=== PATIENT | male | born 1960 | race Caucasian/White ===

== ENCOUNTER 2019-04-08 12:13 | Emergency (ER) | payer SELFPAY ==
[2019-04-08] MEDS ORDERED: dexAMETHasone 10 MG/ML VIAL ONE (12:29)
[2019-04-08] MEDS ORDERED: KETOROLAC 30 MG/ML INJ ONE (12:29)
--- NOTE | 2019-04-08 13:00 | ER ---
Nurse's Notes [facility] Name: Dillon Agudelo Age: 58 yrs Sex: Male : 1960 Arrival Date: 04/08/2019 Time: 12:15 Bed 13 Private MD: Diagnosis: Lumbago with sciatica, left side Presentation: 04/08 12:19 Presenting complaint: Patient states: low back pain after lifting a 20 lb bag of ice sv today. Transition of care: patient was not received from another setting of care. Onset of symptoms was April 08, 2019. Risk Assessment: Do you want to hurt yourself or someone else? Patient reports no desire to harm self or others. Initial Sepsis Screen: Does the patient meet any 2 criteria? No. Patient's initial sepsis screen is negative. Does the patient have a suspected source of infection? No. Patient's initial sepsis screen is negative. Care prior to arrival: None. 12:19 Method Of Arrival: Ambulatory sv 12:19 Acuity: CINDY 4 sv Historical: - Allergies: 12:19 No Known Allergies; sv - PMHx: 12:19 Thyroid problem; sv - PSHx: 12:19 None; sv - Immunization history:: Flu vaccine is not up to date. - Social history:: Smoking status: Patient uses tobacco products, smokes one pack cigarettes per day. - Ebola Screening: : No symptoms or risks identified at this time. Screenin:20 Abuse screen: Denies threats or abuse. Nutritional screening: No deficits noted. rb1 Tuberculosis screening: No symptoms or risk factors identified. Fall Risk None identified. Assessment: 12:20 General: Appears in no apparent distress. comfortable, Behavior is calm, cooperative, rb1 Denies fever. Pain: Complains of pain in lumbar area and left low back Pain radiates to left leg Pain currently is 8 out of 10 on a pain scale. Pain began 0800 this morning. Neuro: Level of Consciousness is awake, alert, obeys commands, Oriented to person, place, time, situation. Cardiovascular: Capillary refill < 3 seconds is brisk in bilateral fingers. Respiratory: Airway is patent Respiratory effort is even, unlabored, Respiratory pattern is regular, symmetrical. GI: No signs and/or symptoms were reported involving the gastrointestinal system. : No signs and/or symptoms were reported regarding the genitourinary system. Derm: Skin is pink, warm \T\ dry. Musculoskeletal: Range of motion: intact in all extremities. 13:10 Reassessment: Patient appears in no apparent distress at this time. Patient and/or rb1 family updated on plan of care and expected duration. Pain level reassessed. Patient is alert, oriented x 3, equal unlabored respirations, skin warm/dry/pink. Vital Signs: 12:20 BP 141 / 93; Pulse 84; Resp 20; Temp 98.7; Pulse Ox 94% ; Weight 77.11 kg; Height 5 ft. sv 7 in. (170.18 cm); Pain 8/10; 13:10 BP 139 / 90; Pulse 83; Resp 17; Pulse Ox 97% on R/A; Pain 6/10; rb1 12:20 Body Mass Index 26.63 (77.11 kg, 170.18 cm) sv ED Course: 12:15 Patient arrived in ED. as 12:16 Joe Cedeño NP is PHCP. pm1 12:16 Shine Ingram MD is Attending Physician. pm1 12:19 Triage completed. sv 12:20 Arm band placed on. sv 12:20 Patient has correct armband on for positive identification. Bed in low position. Call rb1 light in reach. Side rails up X 1. Pulse ox on. NIBP on. 12:23 Karyn Kowalski, RN is Primary Nurse. rb1 13:16 No provider procedures requiring assistance completed. Patient did not have IV access rb1 during this emergency room visit. Administered Medications: 12:33 Drug: TORadol 60 mg Route: IM; Site: left gluteus; rb1 12:50 Follow up: Response: No adverse reaction; Pain is decreased rb1 12:34 Drug: Decadron 10 mg Route: IM; Site: left deltoid; rb1 12:50 Follow up: Response: No adverse reaction rb1 Outcome: 12:59 Discharge ordered by MD. pm1 13:16 Discharged to home ambulatory. rb1 13:16 Condition: stable 13:16 Discharge instructions given to patient, Instructed on discharge instructions, follow up and referral plans. medication usage, Demonstrated understanding of instructions, follow-up care, medications, Prescriptions given X 3. 13:18 Patient left the ED. rb1 Signatures: Stacy Calderon RN RN Jolly Heller as Kowalski, Karyn, RN RN rb1 Marikatie, Joe, [employer]BEST[employer] SIDING [employer]CHANIC ASBESTOS SIDING MECHANIC pm1
--- NOTE | 2019-04-08 13:01 | EDPHYS ---
Physician Documentation [facility] Name: Dillon Agudelo Age: 58 yrs Sex: Male : 1960 Arrival Date: 04/08/2019 Time: 12:15 Bed 13 Private MD: Shine Palomino HPI: 04/08 12:24 This 58 yrs old Male presents to ER via Ambulatory with complaints of Low pm1 Back Pain. 12:24 The patient presents with pain. The symptoms are located in the low back. The pain pm1 radiates to the left leg. The problem was sustained lifting a bag of ice. Onset: The symptoms/episode began/occurred today. Modifying factors: The patient symptoms are alleviated by remaining still, the patient symptoms are aggravated by movement. Associated signs and symptoms: Pertinent negatives: abdominal pain, chest pain, constipation, dysuria, fever, hematuria, nausea, numbness, tingling, vomiting. The patient has experienced similar episodes in the past, multiple times. Patient with back issues for the past 15 years. Has arthritis, herniated/worn discs to lower back. Usually aggravates his back with some motion. Prior to back pain today from picking up a bag of ice, the last back pain was due to bending over and putting on his boots from a seated position. Historical: - Allergies: 12:19 No Known Allergies; sv - PMHx: 12:19 Thyroid problem; sv - PSHx: 12:19 None; sv - Immunization history:: Flu vaccine is not up to date. - Social history:: Smoking status: Patient uses tobacco products, smokes one pack cigarettes per day. - Ebola Screening: : No symptoms or risks identified at this time. ROS: 12:24 Constitutional: Negative for fever, chills, and weight loss, Neck: Negative for injury, pm1 pain, and swelling, Cardiovascular: Negative for chest pain, palpitations, and edema, Respiratory: Negative for shortness of breath, cough, wheezing, and pleuritic chest pain, Abdomen/GI: Negative for abdominal pain, nausea, vomiting, diarrhea, and constipation. 12:24 : Negative for injury, bleeding, discharge, and swelling, MS/Extremity: Negative for injury and deformity, Skin: Negative for injury, rash, and discoloration, Neuro: Negative for headache, weakness, numbness, tingling, and seizure. 12:24 Back: Positive for pain with movement, of the lumbar area, radiating to left lower leg. Exam: 12:24 Constitutional: This is a well developed, well nourished patient who is awake, alert, pm1 and in no acute distress. Head/Face: Normocephalic, atraumatic. Neck: Trachea midline, no thyromegaly or masses palpated, and no cervical lymphadenopathy. Supple, full range of motion without nuchal rigidity, or vertebral point tenderness. No Meningismus. Chest/axilla: Normal chest wall appearance and motion. Nontender with no deformity. No lesions are appreciated. Cardiovascular: Regular rate and rhythm with a normal S1 and S2. No gallops, murmurs, or rubs. Normal PMI, no JVD. No pulse deficits. Respiratory: Lungs have equal breath sounds bilaterally, clear to auscultation and percussion. No rales, rhonchi or wheezes noted. No increased work of breathing, no retractions or nasal flaring. Abdomen/GI: Soft, non-tender, with normal bowel sounds. No distension or tympany. No guarding or rebound. No evidence of tenderness throughout. 12:24 Skin: Warm, dry with normal turgor. Normal color with no rashes, no lesions, and no evidence of cellulitis. MS/ Extremity: Pulses equal, no cyanosis. Neurovascular intact. Full, normal range of motion. 12:24 Back: normal spinal alignment noted, vertebral tenderness, is not appreciated, muscle spasm, is appreciated in the low back area. 12:24 Neuro: Orientation: is normal, Motor: is normal, moves all fours, Sensation: is normal, no obvious gross deficits. Vital Signs: 12:20 BP 141 / 93; Pulse 84; Resp 20; Temp 98.7; Pulse Ox 94% ; Weight 77.11 kg; Height 5 ft. sv 7 in. (170.18 cm); Pain 8/10; 13:10 BP 139 / 90; Pulse 83; Resp 17; Pulse Ox 97% on R/A; Pain 6/10; rb1 12:20 Body Mass Index 26.63 (77.11 kg, 170.18 cm) sv MDM: 12:16 Patient medically screened. [facility] 12:23 Data reviewed: vital signs. pm1 12:47 Counseling: I had a detailed discussion with the patient and/or guardian regarding: the pm1 historical points, exam findings, and any diagnostic results supporting the discharge/admit diagnosis, the need for outpatient follow up, with PCP, to return to the emergency department if symptoms worsen or persist or if there are any questions or concerns that arise at home. Administered Medications: 12:33 Drug: TORadol 60 mg Route: IM; Site: left gluteus; rb1 12:50 Follow up: Response: No adverse reaction; Pain is decreased rb1 12:34 Drug: Decadron 10 mg Route: IM; Site: left deltoid; rb1 12:50 Follow up: Response: No adverse reaction rb1 Disposition: 04/08/19 12:59 Discharged to Home. Impression: Lumbago with sciatica, left side. - Condition is Stable. - Discharge Instructions: Back Pain, Adult, Sciatica. - Prescriptions for Naprosyn 500 mg Oral Tablet - take 1 tablet by ORAL route 2 times per day As needed take with food; 30 tablet. Medrol (Taco) 4 mg Oral Tablets, Dose Pack - take 1 tablet by ORAL route as directed - follow package instructions; 1 packet. Tramadol 50 mg Oral Tablet - take 1 tablet by ORAL route every 8 hours as needed; 12 tablet. - Medication Reconciliation Form, Thank You Letter, Antibiotic Education, Prescription Opioid Use form. - Follow up: Emergency Department; When: As needed; Reason: Worsening of condition. Follow up: Private Physician; When: 2 - 3 days; Reason: Recheck today's complaints, Continuance of care, Re-evaluation by your physician. - Problem is new. - Symptoms have improved. Addendum: 04/10/2019 10:16 Co-signature as Attending Physician, Shine Ingram MD I agree with the assessment and c lucio plan of care. Signatures: Stacy Calderon RN RN sv Anderson, Corey, MD MD cha Barber, Rebecca, RN RN rb1 Joe Cedeño NP [employer] pm1 Corrections: (The following items were deleted from the chart) 04/08 13:18 12:59 04/08/2019 12:59 Discharged to Home. Impression: Lumbago with sciatica, left rb1 side. Condition is Stable. Forms are Medication Reconciliation Form, Thank You Letter, Antibiotic Education, Prescription Opioid Use. Follow up: Emergency Department; When: As needed; Reason: Worsening of condition. Follow up: Private Physician; When: 2 - 3 days; Reason: Recheck today's complaints, Continuance of care, Re-evaluation by your physician. Problem is new. Symptoms have improved. pm1
[2019-04-08 13:27] VITALS: BP 141/93; TEMP 98.7; O2SAT 94
== END 2019-04-08 13:18 | disposition home or self-care (01) ==
LOC: ER 12:13
DX: M54.42 Lumbago with sciatica, left side (principal); F17.210 Nicotine dependence, cigarettes, uncomplicated
CPT/HCPCS: 96372; 99283; J1100